=== PATIENT | male | born 1995 | race African-American/Black ===

== ENCOUNTER 2016-04-18 18:55 | Emergency (ER) | payer OTHER ==
[2016-04-18] MEDS ORDERED: DIPH/PERTUSS(ACELL)/TETANUS VAC/PF 0.5 ML SYR (>=10YO) IM ONE (19:03)
[2016-04-18] MEDS ORDERED: LIDOCAINE 1% INJ-PF (10 MG/ML) 30 ML SDV INJ ONE (20:04)
[2016-04-18] MEDS ORDERED: SULFAMETHOXAZOLE/TRIMETHOPRIM 800-160 MG TABLET PO ONE (21:46)
[2016-04-18] MEDS ORDERED: CEPHALEXIN 500 MG CAPSULE PO ONE (21:46)
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
[2016-04-19 03:57] VITALS: BP 125/81
== END 2016-04-18 22:55 | disposition home or self-care (01) ==
LOC: ER 18:55
PROC: 0HQDXZZ Repair Right Lower Arm Skin, External Approach (ICD-10-PCS; principal; 2016-04-18)
DX: S56.921A Laceration of unspecified muscles, fascia and tendons at forearm level, right arm, initial encounter (principal); S51.821A Laceration with foreign body of right forearm, initial encounter; M25.561 Pain in right knee; M25.562 Pain in left knee; V29.9XXA Motorcycle rider (driver) (passenger) injured in unspecified traffic accident, initial encounter
CPT/HCPCS: 99285; 90471; 73090; 73560; 70450; 71260; 72125; 74177; 90715; 12005; J3490